=== PATIENT | male | born 1985 | race American Indian/Alaskan Native ===

== ENCOUNTER 2020-07-27 11:32 | Emergency (ER) | payer SELFPAY ==
[2020-07-27] MEDS ORDERED: IBUPROFEN 600 MG TAB PO ONE ×2 (12:28→12:32)
[2020-07-27 12:30] VITALS: BP 116/69
--- NOTE | 2020-07-27 12:36 | Emergency Department Report ---
ED General Adult HPI - General Chief complaint: Sore Throat Stated complaint: SORE THROAT Time Seen by Provider: 07/27/20 12:33 Source: patient Mode of arrival: Ambulatory Limitations: No Limitations - History of Present Illness Initial comments: 34-year-old -[place] male patient presents with complaints of sore throat x2 days. He states pain worsens with swallowing, but denies any difficulty swallowing, difficulty opening his jaw, headache, chest pain, or shortness of breath. He does report a mild cough, but denies any loss of taste/smell, abdominal pain, nausea/vomiting/diarrhea, or recent known sick contacts. Past medical history includes history of asthma as a child per patient. - Related Data Previous Rx's Medication Instructions Recorded Last Taken Type Amoxicillin [Trimox CAP] 500 mg PO BID 10 Days #20 capsule 07/27/20 Unknown Rx Ibuprofen [Motrin 800 MG tab] 800 mg PO Q8HR PRN #21 tablet 07/27/20 Unknown Rx Allergies Allergy/AdvReac Type Severity Reaction Status Date / Time No Known Allergies Allergy Unverified 07/27/20 12:29 ED Review of Systems ROS: Stated complaint: SORE THROAT Other details as noted in HPI Constitutional: chills. denies: diaphoresis, fever, malaise, weakness ENT: throat pain. denies: ear pain, dental pain Respiratory: cough. denies: shortness of breath Cardiovascular: denies: chest pain, edema, syncope Gastrointestinal: denies: abdominal pain, nausea, vomiting, diarrhea Genitourinary: denies: urgency, dysuria, frequency Musculoskeletal: denies: back pain Skin: denies: rash, lesions, change in color Hematological/Lymphatic: denies: swollen glands ED Past Medical Hx - Past Medical History Previous Medical History?: No - Surgical History Past Surgical History?: No - Medications Home Medications: Home Medications Medication Instructions Recorded Confirmed Last Taken Type Amoxicillin [Trimox CAP] 500 mg PO BID 10 Days #20 capsule 07/27/20 Unknown Rx Ibuprofen [Motrin 800 MG tab] 800 mg PO Q8HR PRN #21 tablet 07/27/20 Unknown Rx ED Physical Exam - General Limitations: No Limitations General appearance: alert, in no apparent distress - Head Head exam: Present: atraumatic, normocephalic - Eye Eye exam: Present: normal appearance. Absent: scleral icterus - Expanded ENT Exam Expanded Throat exam: Positive: tonsillar erythema. Negative: tonsillomegaly, tonsillar exudate - Neck Neck exam: Present: full ROM, lymphadenopathy (Mild anterior cervical, tender). Absent: meningismus - Respiratory Respiratory exam: Present: normal lung sounds bilaterally. Absent: respiratory distress - Cardiovascular Cardiovascular Exam: Present: regular rate, normal rhythm - Back Exam Back exam: Present: full ROM - Neurological Exam Neurological exam: Present: alert, oriented X3, normal gait - Psychiatric Psychiatric exam: Present: normal affect, normal mood - Skin Skin exam: Present: warm, dry, intact, normal color. Absent: rash ED Course Vital Signs 07/27/20 07/27/20 07/27/20 12:29 13:57 13:58 Temperature 102.6 F H Pulse Rate 88 83 79 Respiratory 16 Rate Blood Pressure 116/69 [Right] O2 Sat by Pulse 98 97 97 Oximetry 07/27/20 14:27 Temperature 99.8 F H Pulse Rate 89 Respiratory 18 Rate Blood Pressure [Right] O2 Sat by Pulse 100 Oximetry ED Medical Decision Making - Radiology Data Radiology results: report reviewed CHEST 2 VIEWS INDICATION: cough, fever. COMPARISON: None FINDINGS: Support devices: None. Heart: Within normal limits. Lungs/pleura: No acute air space or interstitial disease. No pneumothorax. Additional findings: None. IMPRESSION: No acute findings. - Medical Decision Making 34-year-old -[place] male patient presents with complaints of sore throat x2 days. He states pain worsens with swallowing, but denies any difficulty swallowing, difficulty opening his jaw, headache, chest pain, or shortness of breath. He does report a mild cough, but denies any loss of taste/smell, abdominal pain, nausea/vomiting/diarrhea, or recent known sick contacts. Past medical history includes history of asthma as a child per patient. Chest x-ray is negative. Erythema of the pharyngitis noted on exam with tender lymphadenopathy. Will treat for strep with Amoxil. Temp initially 102.6, now 99.6 after ibuprofen 600. Patient is well-appearing, his vitals are normal, he is stable for discharge home. Discussed signs and symptoms that should prompt immediate return to the urgency department in detail with patient who verbalized understanding. Patient to follow-up with primary care provider in 3 days. Critical care attestation.: If time is entered above; I have spent that time in minutes in the direct care of this critically ill patient, excluding procedure time. ED Disposition Clinical Impression: Strep pharyngitis Disposition: DC-01 TO HOME OR SELFCARE Is pt being admited?: No Condition: Stable Instructions: Strep Throat, Adult Prescriptions: Ibuprofen [Motrin 800 MG tab] 800 mg PO Q8HR PRN #21 tablet PRN Reason: pain/fever Amoxicillin [Trimox CAP] 500 mg PO BID 10 Days #20 capsule Referrals: [facility] [Provider Group] - 3-5 Days Forms: Work/School Release Form(ED)
--- NOTE | 2020-07-27 13:03 | XRay Report ---
CHEST 2 VIEWS INDICATION: cough, fever. COMPARISON: None FINDINGS: Support devices: None. Heart: Within normal limits. Lungs/pleura: No acute air space or interstitial disease. No pneumothorax. Additional findings: None. IMPRESSION: No acute findings. Signer Name: Mik Adam Jr, MD Signed: 07/27/2020 12:58 PM Workstation Name: [id number]
== END 2020-07-27 14:28 | disposition home or self-care (01) ==
LOC: ED 11:32
DX: J02.0 Streptococcal pharyngitis (principal); Z79.899 Other long term (current) drug therapy
CPT/HCPCS: 71046